=== PATIENT | male | born 1960 | race Caucasian/White ===

== ENCOUNTER → 2021-02-20 | Outpatient (CLI) | payer MEDICAID ==
[~2021-02-20] MED LIST: ACET500T64 PO; AMLO-150 PO; ASPI325T80 PO; MAGN400T9 PO; MELA5TAB14 PO; MULT-516 PO; OMEP40CA42 PO; UBID100C24 PO; VITA150T PO
== END | disposition home or self-care (01) ==
LOC: RAD 09:43
PROVIDERS: ATTEND Nurse Practitioner Critical Care Medicine
DX: M40.292 Other kyphosis, cervical region (principal); M54.12 Radiculopathy, cervical region
CPT/HCPCS: 72040